=== PATIENT | female | born 1990 | race Caucasian/White ===

== ENCOUNTER 2020-04-29 16:46 | Emergency (ER) | payer MEDICAID ==
[~2020-04-29] VITALS: Ht 160 cm; Wt 101.2 kg
[2020-04-29 17:41] LABS: BASOPHIL % 0.3 % (0.2-1.3); PLATELET COUNT 286 x10^3mcL (179-408); RED CELL DISTRIBUTION WIDTH 13.9 % (12.3-17.7)
[2020-04-29 17:49] LABS: microscopic required? YES; urine erythrocyte 3+ (NEGATIVE)
[2020-04-29] MEDS ORDERED: MACROBID100 MG PO (19:37)
[2020-04-29] MEDS ORDERED: ACETAMINOPHEN325 M3 PO (19:37)
[2020-04-29 19:47] VITALS: BP 127/83
== END 2020-04-29 19:47 | disposition home or self-care (01) ==
LOC: ED 16:46
DX: O03.9 Complete or unspecified spontaneous abortion without complication (principal); O23.41 Unspecified infection of urinary tract in pregnancy, first trimester; Z3A.01 Less than 8 weeks gestation of pregnancy